=== PATIENT | female | born 1970 | race Caucasian/White ===

== ENCOUNTER 2017-10-03 13:59 | Emergency (ER) | payer MEDICARE ==
[~2017-10-03] VITALS: Ht 160 cm; Wt 75.7 kg
[~2017-10-03 13:59] MED LIST: IBUPROFEN400 MG PO; MS CONTIN15 MG PO; NEXIUM20 MG PO; PRISTIQ ER50 MG PO; TIZANIDINE HCL4 M1 PO; TRAZODONE HCL50 MG PO
[2017-10-03] MEDS ORDERED: HYDROCODONE/APAP 5MG-325MG TAB PO ONE (17:00)
[2017-10-03] MEDS ORDERED: KETOROLAC TROMETHAMINE 60 MG/2 ML VIAL IM ONE (17:00)
[2017-10-03 18:53] VITALS: BP 126/93
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
== END 2017-10-03 19:06 | disposition home or self-care (01) ==
LOC: ER 13:59
DX: M54.5 Low back pain (principal); S39.012A Strain of muscle, fascia and tendon of lower back, initial encounter; V89.2XXS Person injured in unspecified motor-vehicle accident, traffic, sequela; M79.7 Fibromyalgia
CPT/HCPCS: 72131; 99283; J1885